=== PATIENT | female | born 1960 | race Caucasian/White ===

== ENCOUNTER 2018-12-06 16:46 | Emergency (ER) | payer OTHER ==
[2018-12-06] MEDS: KETOROLAC 30 MG INJ IM (20:36)
== END 2018-12-06 22:01 | disposition home or self-care (01) ==
LOC: FTE 22:01
DX: M23.92 Unspecified internal derangement of left knee (principal); E11.9 Type 2 diabetes mellitus without complications; Z79.84 Long term (current) use of oral hypoglycemic drugs
CPT/HCPCS: 73562; 96372; 99284-25